=== PATIENT | female | born 1970 | race Hispanic/Latino ===

== ENCOUNTER 2024-07-29 09:49 | Inpatient (IN) | payer BC ==
[~2024-07-29] VITALS: Ht 162.6 cm; Wt 72.6 kg
--- NOTE | 2024-07-29 10:11 | ERN ---
General Chief Complaint: Abdominal Pain Stated Complaint: GENERALIZED ABDOMINAL PAIN Time Seen by MD: 09:51 Source: patient, family History of Present Illness Initial Comments PATIENT IS A 54-YEAR-OLD FEMALE COMING IN COMPLAINING OF RIGHT UPPER QUADRANT PAIN RADIATING TO THE BACK. SHE STATES THAT THIS STARTED LAST NIGHT AFTER EATING. SHE ALSO STATES HE WAS DIAGNOSED WITH CHOLELITHIASIS SO SO A YEAR AGO. SHE STATES THAT SINCE THEN HAS PAIN HAD IMPROVED. Allergies: Coded Allergies: No Known Drug Allergies (Unverified Allergy, Unknown, 07/29/24) Past Medical History Past Medical History: Gallstones Past Surgical History: None ROS Dictation CONSTITUTIONAL: NO CHILLS, NO FEVER, NO WEAKNESS, NO DIAPHORESIS, NO MALAISE. HEAD/FACE: NO SIGNS OF TRAUMA. EENT: NO EYE PAIN, NO BLURRED VISION, NO TEARING, NO DOUBLE VISION, NO EAR PAIN, NO EAR DISCHARGE, NO NOSE PAIN, NO NASAL CONGESTION, NO THROAT PAIN, NO THROAT SWELLING, NO MOUTH PAIN. RESPIRATORY: NO COUGH, NO ORTHOPNEA, NO SOB, NO STRIDOR, NO WHEEZING. CARDIOVASCULAR: NO CHEST PAIN, NO EDEMA, NO PALPITATIONS, NO SYNCOPE. GASTROINTESTINAL/ABDOMINAL: NO ABDOMINAL PAIN, NO CONSTIPATION, NO DIARRHEA, NO NAUSEA, NO VOMITING. GENITOURINARY: NO ABNORMAL DISCHARGE, NO DYSURIA, NO FREQUENT URINATION, NO HEMATURIA. NO COMPLAINTS OF PAIN IN THE GENITALS. MUSCULOSKELETAL: NO BACK PAIN, NO GOUT, NO JOINT PAIN, NO JOINT SWELLING, NO MUSCLE PAIN, NO MUSCLE STIFFNESS, NO NECK PAIN. INTEGUMENTARY: NO CHANGE IN COLOR, NO CHANGE IN HAIR/NAILS, NO DRYNESS, NO LESION, NO LUMPS, NO RASH. NEUROLOGICAL/PSYCH: NO ANXIETY, NOT DEPRESSED, NO EMOTIONAL PROBLEM, NO HEADACHE, NO NUMBNESS, NO PRE-EXISTING DEFICIT, NO HISTORY OF SEIZURES, NO TREMORS, NO WEAKNESS. HEMATOLOGIC/LYMPHATIC: NOT ANEMIC, NO HISTORY OF BLOOD CLOTS, NO APPARENT BLEEDING, NO BRUISING, GLANDS NOT SWOLLEN. ALL SYSTEMS NEGATIVE, EXCEPT NOTED. Physical Exam Physical Exam Dictation VITAL SIGNS: REVIEWED. GENERAL APPEARANCE: ALERT, ORIENTED X3, NO ACUTE DISTRESS, OBESE. HEAD AND FACE: NON-TRAUMATIC. EYES: PERRL, PINK CONJUNCTIVAS, EYELID NO TRAUMA, ANTERIOR CHAMBER CLEAR. EARS: PINNAS INTACT AND NO SIGNS OF TRAUMA OR ERYTHEMA. EAR CANALS CLEAR AND NO DISCHARGE. TMS NO ERYTHEMA. NOSE: NO DISCHARGE, NO BLEEDING. OROPHARYNX: MOUTH NORMAL, TEETH NO CARIES, TONGUE PINK. PHARYNX CLEAR, NO ERYTHEMA. TONSILS NO EXUDATES, NO ABSCESSES NOTED. MUCOUS MEMBRANE MOIST. NECK: SUPPLE, NON-TENDER, NO THYROMEGALY, NO MASSES, NO JVD, NO BRUITS. BREAST: DEFERRED. CHEST: NO TENDERNESS, NO CREPITUS, NO PARADOXICAL MOVEMENT, NO RETRACTIONS. LUNGS: CLEAR, WELL-VENTILATED, SYMMETRIC, NO RALES, NO WHEEZING, NO RHONCHI, NO STRIDOR, GOOD BREATH SOUNDS BILATERALLY. HEART: REGULAR RATE, REGULAR RHYTHM, NO MURMUR, NO GALLOPS. VASCULAR: NO PERIPHERAL EDEMA. ABDOMEN: SOFT, POSITIVE BOWEL SOUNDS, NONDISTENDED, NO GUARDING, NONTENDER, NO REBOUND, NO MASSES NO HEPATOMEGALY, NO SPLENOMEGALY, NO RAMESH'S SIGN, NO HERNIAS. RECTAL: DEFERRED. GENITAL: DEFERRED. NEUROLOGICAL: NORMAL SPEECH, GROSS MOTOR FUNCTION INTACT, GROSS SENSORY FUNCTION INTACT. MUSCULOSKELETAL: NECK NONTENDER, FULL RANGE OF MOTION, BACK NONTENDER, FULL RANGE OF MOTION. EXTREMITIES: NONTENDER, FULL RANGE OF MOTION. SKIN: COLOR PINK, DRY, NO TURGOR, NO RASH, NO LACERATIONS, NO ABRASIONS, NO CONTUSIONS. LYMPHATICS: DEFERRED. Results Laboratory and Microbiology Lab and Micro Result Laboratory Tests Test 07/29/24 10:09 07/29/24 11:42 White Blood Count 6.1 K/uL (4.8-10.8) Red Blood Count 4.60 MIL/uL (4.00-5.50) Hemoglobin 14.4 g/dL (12.0-16.0) Hematocrit 40.8 % (36-48) Mean Corpuscular Volume 88.7 fL (79-99) Mean Corpuscular Hemoglobin 31.3 pg (27.0-33.0) Mean Corpuscular Hemoglobin Concent 35.3 g/dL (32.0-36.0) Red Cell Distribution Width 12.0 % (11.0-15.5) Platelet Count 294 K/uL (130-400) Mean Platelet Volume 10.6 fL (7.5-10.5) H Immature Granulocyte % (Auto) 0.3 % (0-1) Neutrophils (%) (Auto) 59.1 % (40.0-77.0) Lymphocytes (%) (Auto) 31.1 % (21.0-51.0) Monocytes (%) (Auto) 6.0 % (3.0-13.0) Eosinophils (%) (Auto) 2.8 % (0.0-8.0) Basophils (%) (Auto) 0.7 % (0.0-5.0) Neutrophils # (Auto) 3.6 K/uL (1.8-7.7) Lymphocytes # (Auto) 1.9 K/uL (1.0-4.8) Monocytes # (Auto) 0.4 K/uL (0.1-1.0) Eosinophils # (Auto) 0.17 K/uL (0.00-0.70) Basophils # (Auto) 0.04 K/uL (0.00-0.20) Absolute Immature Granulocyte (auto 0.02 K/uL (0-1) Nucleated Red Blood Cells 0.0 % (0.0-0.19) Sodium Level 141 mmol/L (136-145) Potassium Level 3.5 mmol/L (3.5-5.1) Chloride Level 105 mmol/L (101-111) Carbon Dioxide Level 29 mmol/L (21-32) Blood Urea Nitrogen 10 mg/dL (7-18) Creatinine 0.8 mg/dL (0.5-1.0) Glomerular Filtration Rate Calc 86 mL/min (>90) Random Glucose 99 mg/dL (70-105) Total Calcium 9.0 mg/dL (8.5-10.1) Total Bilirubin 0.8 mg/dL (0.2-1.0) Aspartate Amino Transf (AST/SGOT) 31 U/L (10-37) Alanine Aminotransferase (ALT/SGPT) 48 U/L (12-78) Alkaline Phosphatase 82 U/L (50-136) Total Creatine Kinase 107 U/L (21-232) Troponin I High Sensitivity 40 ng/L (4-50) Total Protein 8.7 g/dL (6.0-8.3) H Albumin 4.3 g/dL (3.5-5.0) Lipase 23 U/L (16-77) Urine Color COLORLESS (YELLOW) Urine Appearance CLEAR (CLEAR) Urine pH 7.0 (5.0-8.0) Urine Specific [place] 1.003 (1.001-1.031) Urine Protein NEGATIVE mg/dL (NEGATIVE) Urine Glucose (UA) NEGATIVE mg/dL (NEGATIVE) Urine Ketones NEGATIVE mg/dL (NEGATIVE) Urine Occult Blood NEGATIVE (NEGATIVE) Urine Nitrate NEGATIVE (NEGATIVE) Urine Bilirubin NEGATIVE mg/dL (NEGATIVE) Urine Urobilinogen 0.2 mg/dL (0.2-1.0) Urine Leukocyte Esterase NEGATIVE Valerie/uL Labs Reviewed?: Yes EKG/XRAY/US/CT/MRI EKG Comment 11/2024 TIME 10:20 A.M. VENTRICULAR RATE 69 SINUS RHYTHM [place] [address] WAVE ELEVATION OR DEPRESSION X-RAY Comment [address] [place] [id number] IMAGING REPORT Signed PATIENT: MARY THOMAS MR#: [id number] : 1970 SEX: F AGE: 54 LOCATION: [facility] ORDER 6 STATUS: [facility] REPORT#: [id number] SERVICE 5 REASON: CP ORDERING PHYSICIAN: ERIC HERRERA MD PROCEDURE: CXR1VW - CHEST 1VW Exam Type: CHEST 1VW Clinical Information: CP Comparison: None Findings: The lungs are clear of infiltrates. The heart is normal in size. The bony and soft tissue structures of the chest are unremarkable. Impression: Clear lungs. DICTATED BY: OBED THOMPSON MD DATE: 07/29/24 1031 ELECTRONICALLY SIGNED BY: OBED THOMPSON MD DATE: 07/29/24 1035 Ultrasound Comment [facility] [address] [id number] IMAGING REPORT Signed PATIENT: MARY THOMAS MR#: [id number] : 1970 SEX: F AGE: 54 LOCATION: [facility] ORDER 6 STATUS: [facility] REPORT#: [id number] SERVICE 5 REASON: Adominal Pain ORDERING PHYSICIAN: ERIC HERRERA MD PROCEDURE: ABDRUQLTD - US ABDOMINAL RUQ\LTD Exam Type: US ABDOMINAL RUQ\E\LTD Clinical Information: Adominal Pain Comparison: None Findings: The liver shows fatty infiltration and is enlarged, measuring 16 and is otherwise unremarkable. Doppler evaluation shows patent portal and hepatic veins. The gallbladder shows cholelithiasis but no evidence of acute or chronic inflammation seen. The gallbladder wall measures 3 mm. The common bile duct is dilated, measuring 8 to 10 mm. The right kidney measures 11.9 x 3.8 cm- it shows no hydronephrosis or calculi, masses or other abnormalities. The pancreas is suboptimally visualized. IMPRESSION: FATTY LIVER INFILTRATION AND HEPATOMEGALY. CHOLELITHIASIS. Dilated common bile duct. DICTATED BY: OBED THOMPSON MD DATE: 07/29/241120 ELECTRONICALLY SIGNED BY: OBED THOMPSON MD DATE: 07/29/241124 CT Scan Comment [address] [id number] IMAGING REPORT Signed PATIENT: MARY THOMAS MR#: [id number] : 1970 SEX: F AGE: 54 LOCATION: [facility] ORDER 6 STATUS: [facility] REPORT#: [id number] SERVICE REASON: ABD PAIN ORDERING PHYSICIAN: ERIC HERRERA MD PROCEDURE: ABD PEL WO - CT ABDOMEN/PELVIS W/O CONTRAST Exam Type: CT ABDOMEN/PELVIS W/O CONTRAST Clinical Information: ABD PAIN Comparison: None CT Dose Index (CTDI): 10.20 mGy Dose Length Product (DLP): 530.00 total mGy-cm PROTOCOL: Routine noncontrast helical scanning of the abdomen and pelvis was performed at 5mm collimation. Findings: No evidence of nephro or ureterolithiasis is found. No hydronephrosis or ureteral dilatation is seen. The lung bases are clear. The stomach is unremarkable. It shows no wall thickening. No gross ulceration is seen. It is not overly distended. There are no surrounding inflammatory changes. No wall lesions are identified to suggest cancer. The spleen is unremarkable. It is not enlarged. The pancreas shows normal anatomy. It is not fatty replaced. It shows no lesions. The pancreatic duct is not dilated. There is evidence of cholelithiasis. No evidence of acute or chronic inflammation is seen. The adrenal glands are unremarkable. There is no enlargement. No lesions are noted. The liver is unremarkable. It shows no focal masses. The appendix is unremarkable. It shows no evidence of inflammation. No appendicolith is seen. The small bowel is unremarkable. There is no evidence of dilatation to suggest obstruction. No evidence of adynamic ileus is seen. There is no small bowel wall thickening to suggest enteritis. The colon is unremarkable. The urinary bladder is unremarkable. There is no wall thickening to suggest tumor or inflammation. There are no intraluminal calculi. There are no diverticula. There is no evidence of chronic bladder outlet obstruction. There is no evidence of urinary bladder distention to suggest urinary retention. The other pelvic structures are unremarkable. The bony and vascular structures are unremarkable for the patient's age. IMPRESSION: Cholelithiasis. This study was performed using dose reduction techniques to include automated exposure control and/or adjustment of the mA and/or kV according to patient size. DICTATED BY: OBED THOMPSON MD DATE: 07/29/24 1036 ELECTRONICALLY SIGNED BY: OBED THOMPSON MD DATE: 07/29/24 1041 [facility] MDM: DIFFERENTIAL DIAGNOSIS: CHOLELITHIASIS, CHOLECYSTITIS, CHOLANGITIS, RATIONALE: TESTS CONSIDERED AND ORDERED SECONDARY TO SHARED DECISION MAKING INCLUDE: PREVIOUS OUTSIDE RECORDS REVIEWED: OLD ER VISITS. RISK OF COMPLICATION AND/OR MORBIDITY OR MORTALITY OF PATIENT MANAGEMENT: NONE MEDICATIONS-PER MEDICATION RECONCILIATION NEED FOR HOSPITALIZATION: PATIENT DOES MEET CRITERIA FOR HOSPITALIZATION. NEED FOR EMERGENCY MAJOR/MINOR SURGERY: NO THERE ARE NO SOCIAL CONCERNS WITH THIS PATIENT. PRESCRIPTION DRUG MANAGEMENT PRESCRIPTIONS WILL INCLUDE SYMPTOMATIC CARE PATIENT'S PRIOR EXTERNAL MEDICAL RECORDS FROM OTHER ER VISITS WERE REVIEWED BY ME INDICATED. PRIOR TESTING AND RESULTS FROM PREVIOUS VISITS WERE REVIEWED. PRIOR TESTS WERE TAKEN INTO ACCOUNT WITH MEDICAL DECISION MAKING AND RESOURCE U TILIZATION, INDEPENDENT HISTORIAN/HISTORIANS WERE USED TO OBTAIN COMPLETE MEDICAL HISTORY. I INDEPENDENTLY INTERPRETED THE TEST THAT WERE PERFORMED, RESULTS WERE REVIEWED BY ME AND CONSIDERED FINDINGS ON RADIOLOGY IF ORDERED. MEDICAL MANAGEMENT AND EXAMINATION INTERPRETATION DISCUSSIONS WERE HAD BY ME WITH OTHER QUALIFIED HEALTHCARE PROFESSIONALS INDICATED FOR THE PATIENT'S CA RE. IS A 54-YEAR-OLD FEMALE COMING IN WITH RIGHT UPPER QUADRANT PAIN. ULTRASOUND CONFIRMS LARGE GALLSTONE 2 CM AT THE NECK OF THE GALLBLADDER NON MOBILE, LONG WITH THIS THERE IS SLUDGE MATERIAL FOUND VIA ULTRASOUND IN THE GALLBLADDER. WITH THESE FINDINGS MOST CONSISTENT DIAGNOSED WOULD BE CHOLELITHIASIS, CHOLECYSTITIS. CASE DISCUSSED WITH SURGEON DR. BONILLA WAS ON-[facility] ACCEPTS PATIENT. ED Course Orders Procedure Category Date Status Time Cbc With Differential LAB 07/29/24 Complete 09:56 Comprehensive LAB 07/29/24 Complete Metabolic Panel 09:56 Troponin I High LAB 07/29/24 Complete Sensitivity 09:56 Urinalysis Profile LAB 07/29/24 Complete 09:56 Us Abdominal Ruq\Ltd US 07/29/24 Resulted 09:56 12 Lead Ekg Tracing- EKG 07/29/24 Logged Technical 09:56 Lactated Ringers PHA 07/29/24 Complete 1000ml (Lactated 10:00 Ondansetron 4mg Inj PHA 07/29/24 Complete (Zofran 4mg Inj) 10:00 Pantoprazole 40mg Inj PHA 07/29/24 Complete (Protonix 40mg Inj 10:00 Creatine Kinase, Total LAB 07/29/24 Complete 09:56 Ct Abdomen/Pelvis W/O CT 07/29/24 Resulted Contrast 09:56 Chest 1vw RAD 07/29/24 Resulted 09:56 Lipase LAB 07/29/24 Complete 09:56 Current Medications Medications (Trade) Dose Ordered Sig/Yogi Route PRN Reason Start Time Stop Time Status Last Admin Dose Admin Lactated Ringer's 1,000 ml @ 0 mls/hr ONCE ONCE IV 07/29/24 10:00 07/29/24 10:01 DC 07/29/24 10:19 Ondansetron HCl (zoFRAN 4MG INJ) 4 mg ONCE ONCE IVP 07/29/24 10:00 07/29/24 10:01 DC 07/29/24 10:18 Pantoprazole Sodium (PROTonix 40MG INJ) 40 mg ONCE ONCE IVP 07/29/24 10:00 07/29/24 10:01 DC 07/29/24 10:18 Vital Signs Date Time Temp Pulse Resp B/P (MAP) Pulse Ox O2 Delivery O2 Flow Rate FiO2 07/29/24 11:20 97.9 62 18 157/89 100 Room Air* 0 21 07/29/24 10:11 98.2 71 17 152/96 95 Room Air* 0 21 07/29/24 09:51 98.6 79 16 125/98 96 Room Air 0 DX & DISP Disposition: Inpatient Decision to Admit Time: 12:37 Departure Impression: Primary Impression: Cholecystitis Condition: Stable ERIC HERRERA MD July 29, 2024 10:11
[2024-07-29] MEDS: ondanSETRON 4MG INJ IVP ONE (10:18)
[2024-07-29] MEDS: PANTOPrazole 40 MG/VIAL IVP ONE (10:18)
[2024-07-29] MEDS: LACTATED RINGERS 1000ML 1,000 ML IV ONE (10:19)
[2024-07-29 10:32] LABS: BASOPHILS # (AUTO) 0.04 K/uL (0.00-0.20); BASOPHILS % (AUTO) 0.7 % (0.0-5.0); EOSINOPHILS # (AUTO) 0.17 K/uL (0.00-0.70); EOSINOPHILS % (AUTO) 2.8 % (0.0-8.0); HEMATOCRIT 40.8 % (36-48); IMMATURE GRANULOCYTE ABSOLUTE 0.02 K/uL (0-1); LYMPHOCYTES # (AUTO) 1.9 K/uL (1.0-4.8); LYMPHOCYTES % (AUTO) 31.1 % (21.0-51.0); MEAN CORPUSCULAR HEMOGLOBIN 31.3 pg (27.0-33.0); MEAN CORPUSCULAR HGB CONC 35.3 g/dL (32.0-36.0); MEAN CORPUSCULAR VOLUME 88.7 fL (79-99); MONOCYTES # (AUTO) 0.4 K/uL (0.1-1.0); NEUTROPHILS # (AUTO) 3.6 K/uL (1.8-7.7); NEUTROPHILS % (AUTO) 59.1 % (40.0-77.0); PLATELET COUNT (AUTO) 294 K/uL (130-400); WHITE BLOOD COUNT (AUTO) 6.1 K/uL (4.8-10.8)
--- NOTE | 2024-07-29 10:35 | HMCIMG ---
Exam Type: CHEST 1VW Clinical Information: CP Comparison: None Findings: The lungs are clear of infiltrates. The heart is normal in size. The bony and soft tissue structures of the chest are unremarkable. Impression: Clear lungs.
[2024-07-29 10:38] LABS: CREATININE 0.8 mg/dL (0.5-1.0); POTASSIUM 3.5 mmol/L (3.5-5.1)
--- NOTE | 2024-07-29 10:41 | HMCIMG ---
Exam Type: CT ABDOMEN/PELVIS W/O CONTRAST Clinical Information: ABD PAIN Comparison: None CT Dose Index (CTDI): 10.20 mGy Dose Length Product (DLP): 530.00 total mGy-cm PROTOCOL: Routine noncontrast helical scanning of the abdomen and pelvis was performed at 5mm collimation. Findings: No evidence of nephro or ureterolithiasis is found. No hydronephrosis or ureteral dilatation is seen. The lung bases are clear. The stomach is unremarkable. It shows no wall thickening. No gross ulceration is seen. It is not overly distended. There are no surrounding inflammatory changes. No wall lesions are identified to suggest cancer. The spleen is unremarkable. It is not enlarged. The pancreas shows normal anatomy. It is not fatty replaced. It shows no lesions. The pancreatic duct is not dilated. There is evidence of cholelithiasis. No evidence of acute or chronic inflammation is seen. The adrenal glands are unremarkable. There is no enlargement. No lesions are noted. The liver is unremarkable. It shows no focal masses. The appendix is unremarkable. It shows no evidence of inflammation. No appendicolith is seen. The small bowel is unremarkable. There is no evidence of dilatation to suggest obstruction. No evidence of adynamic ileus is seen. There is no small bowel wall thickening to suggest enteritis. The colon is unremarkable. The urinary bladder is unremarkable. There is no wall thickening to suggest tumor or inflammation. There are no intraluminal calculi. There are no diverticula. There is no evidence of chronic bladder outlet obstruction. There is no evidence of urinary bladder distention to suggest urinary retention. The other pelvic structures are unremarkable. The bony and vascular structures are unremarkable for the patient's age. IMPRESSION: Cholelithiasis. This study was performed using dose reduction techniques to include automated exposure control and/or adjustment of the mA and/or kV according to patient size.
[2024-07-29 10:43] LABS: ALBUMIN 4.3 g/dL (3.5-5.0); BILIRUBIN,TOTAL 0.8 mg/dL (0.2-1.0); TOTAL PROTEIN, SERUM 8.7 g/dL (6.0-8.3)
--- NOTE | 2024-07-29 11:25 | HMCIMG ---
Exam Type: US ABDOMINAL RUQ\E\LTD Clinical Information: Adominal Pain Comparison: None Findings: The liver shows fatty infiltration and is enlarged, measuring 16 and is otherwise unremarkable. Doppler evaluation shows patent portal and hepatic veins. The gallbladder shows cholelithiasis but no evidence of acute or chronic inflammation seen. The gallbladder wall measures 3 mm. The common bile duct is dilated, measuring 8 to 10 mm. The right kidney measures 11.9 x 3.8 cm- it shows no hydronephrosis or calculi, masses or other abnormalities. The pancreas is suboptimally visualized. IMPRESSION: FATTY LIVER INFILTRATION AND HEPATOMEGALY. CHOLELITHIASIS. Dilated common bile duct.
[2024-07-29 11:51] LABS: APPEARANCE,URINE CLEAR (CLEAR); BILIRUBIN,URINE NEGATIVE (NEGATIVE); COLOR,URINE COLORLESS (YELLOW); GLUCOSE, URINE (UA) NEGATIVE (NEGATIVE); KETONES,URINE NEGATIVE (NEGATIVE); LEUKOCYTE ESTERASE ,URINE NEGATIVE Leu/uL (NEGATIVE); NITRATE,URINE NEGATIVE (NEGATIVE); OCCULT BLOOD,URINE NEGATIVE (NEGATIVE); PROTEIN,URINE NEGATIVE (NEGATIVE); UROBILINOGEN,URINE 0.2 mg/dL (0.2-1.0)
[2024-07-29 11:52] LABS: ADD UA MICROSCOPIC NO
[2024-07-29] MEDS ORDERED: acetaMINOPHEN 325 MG TAB PO PRN (13:00)
[2024-07-29] MEDS ORDERED: LAbetaLOL 20MG SYG IV PRN (13:30)
[2024-07-29] MEDS ORDERED: PoTASSium chloRIDE 20MEQ ER 20 MEQ ERTAB PO PRN (13:30)
[2024-07-29] MEDS ORDERED: PoTASSium chloRIDE 20MEQ/100ML 100 ML IV PRN (13:30)
[2024-07-29] MEDS ORDERED: PoTASSium chl 10% ELIXIR 20MEQ 20 MEQ/15 ML UDCUP PO PRN (13:30)
[2024-07-29] MEDS ORDERED: ondanSETRON 4MG INJ IVP PRN (13:30)
[2024-07-29] MEDS ORDERED: AMLO-257 PO (14:29)
[2024-07-29] MEDS: cefTRIAXone 1G VIAL IVPB SCH (14:31)
[2024-07-29] MEDS: LACTATED RINGERS 1000ML 1,000 ML IV SCH (14:31)
--- NOTE | 2024-07-29 14:37 | NUR ---
PATIENTS STATED HE GAVE PATIENT HER AMLODIPINE 5MG PO I EXPLAINED TO PATIENT AND TO HOLD OF ON HOME MEDS UNTIL DR REVIEWS THEM
--- NOTE | 2024-07-29 14:39 | NUR ---
DCP: HOME Pt currently lives with her Debora Alberto [phone] in their own home. Pt denied any insecurities with food, senior living, and/or utilities. Pt does not have DME, home health, or provider services. Pt is able to complete ADLs independently. Pt reports that she has a PCP that has been appointed by her insurance however she hasn't made appointment yet or recall the name of the doctor. Pt uses [facility] on [address] for any RX needs. At [place] pt will go home and family will assist with transportation. Addendum: 07/29/24 at 1443 by VENUS MEDINA SS Amended: Links added.
[2024-07-29] MEDS: metRONIDazole 500MG/100ML BAG 100 ML IVPB SCH (14:43)
--- NOTE | 2024-07-29 15:18 | EKG ---
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
--- NOTE | 2024-07-29 15:18 | EKG ---
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
[2024-07-29 15:50] VITALS: BP 158/97; PULSE 78; RESP 18; TEMP 98.2
--- NOTE | 2024-07-29 16:00 | NUR ---
CALLED AND GAVE BEDSIDE REPORT KORIN RN, ROOM 314 BED WAS CLEAN AND READY TO USE
--- NOTE | 2024-07-29 16:05 | HP ---
[facility] HISTORY [facility] PHYSICAL Date of Service: July 29, 2024 Time of Service: 16:00 HISTORY OF PRESENT ILLNESS: Date of service: 07/29/2024 54-year-old female with underlying history of hypertension, cholelithiasis who presented to the ER for further evaluation of right upper quadrant abdominal pain that started since 12:00 p.m. yesterday with associated nausea and multiple episodes of vomiting x 2. Patient states that symptoms started yesterday afternoon and pain has been very severe in intensity this morning. Pain was 9- 10/10 in severity. Patient states that she had similar symptoms last year and was told that she had cholelithiasis. Has not been evaluated by surgery as outpatient. She denies any fevers, chills, chest pain or shortness of breath. She reports that patient has a history of hypertension. She takes amlodipine for management of blood pressure control. She sometimes forgets to take amlod ipine. She denies any previous history of AL or syncope. On presentation to the hospital, patient was noted to be afebrile and hemodynamically stable. Labs on presentation was unremarkable. Patient underwent CT abdomen pelvis which showed findings of multiple cholelithiasis. Abdominal ultrasound showed findings of cholelithiasis, fatty liver, with dilated common bile duct. Chest x-ray showed no acute infiltrates. Consultation with General surgery with Dr. Dahl was requested in the ER. Patient will be admitted and will receive IV fluids and IV antibiotic therapy. We will obtain MRCP to rule out choledocholithiasis, we will follow up General surgery recommendations to see if patient will benefit from inpatient cholecystectomy given due to symptomatic cholelithiasis. REVIEW OF SYSTEMS CONSTITUTIONAL: Denies fevers, chills, or night sweats. No unintentional weight loss reported. NEUROLOGICAL: Denies headache, amaurosis fugax, motor weakness, sensory deficit, vertigo/spinning sensation, gait abnormalities, or tremors. ENT: No hearing loss, otalgia, otorrhea, rhinitis, rhinorrhea, hoarseness, or sore throat. CARDIOVASCULAR: Denies any exertional angina, dyspnea on exertion, orthopnea, paroxysmal nocturnal dyspnea, palpitations, life-threatening arrhythmias, cl audication. PULMONARY: Denies any shortness of breath, cough, phlegm/sputum, hemoptysis, pleuritic chest pain. SLEEP: Denies morning headaches, daytime somnolence or napping. Denies difficulty falling asleep, staying asleep, waking from sleep. Denies knowledge of snoring. GASTROINTESTINAL: Nausea, vomiting, abdominal pain GENITOURINARY: Denies frequency, urgency, nocturia, hematuria or incontinence (Storage/Irritative symptoms.) Low urinary stream, straining to void, urinary intermittency or hesitancy, splitting of the voiding stream, terminal dribbling. ENDOCRINOLOGIC: Denies polyuria, polydipsia, polyphagia or heat/cold intolerances. HEMATOLOGIC: Denies thrombophilia/previous clots, or coagulopathy/bleeding disorders. ONCOLOGIC: Denies personal history of malignancy. DERMATOLOGIC: Denies rashes or pruritus. PSYCHIATRIC: Denies any suicidal or homicidal ideation. Denies hallucinations. PAST MEDICAL HISTORY: Hypertension, cholelithiasis PAST SURGICAL HISTORY: Denies any history of significant surgeries PAST SOCIAL HISTORY: Denies active smoking or alcohol consumption FAMILY HISTORY: Denies pertinent family history Allergies: No known drug allergies Home medications: Amlodipine 5 mg daily Coded Allergies: No Known Drug Allergies (Unverified Allergy, Unknown, 07/29/24) PHYSICAL EXAM GENERAL APPEARANCE: The patient is awake, alert, and oriented, in no acute cardiopulmonary distress. NEUROLOGICAL: Cranial nerves II-XII grossly intact. Motor is 5/5 in bilateral upper and lower extremities proximal to distal. No sensory deficits. HEENT: Face is symmetric. Pupils are equal and reactive. Extraocular movements are intact. NECK: Supple. No JVD. No thyromegaly. No submental, submandibular, pre- /postauricular, occipital or supraclavicular lymphadenopathy. CHEST: Normal chest expansion. No Telemetry. LUNGS: Absence of any rales, rhonchi or any wheezing. CARDIOVASCULAR: Regular. S1 and S2 normal. No appreciable rubs, murmurs or gallops. ABDOMEN: Soft, mild tenderness to palpation of the right upper quadrant with Womack's sign noted to be negative : Deferred. No Rosas. EXTREMITIES: Non-edematous and not cyanotic. No clubbing. Good capillary refi ll. SKIN: No skin breakdown. Vital Sign (Last 24 Hours) 07/29/24 15:58 Temp 98.1 Pulse 65 Resp 17 B/P (MAP) 153/97 Pulse Ox 97 O2 Delivery Room Air* O2 Flow Rate 0 FiO2 21 LABS: Laboratory: Test 07/29/24 11:42 07/29/24 10:09 07/29/24 10:04 Range/Units Urine Color COLORLESS YELLOW Urine Appearance CLEAR CLEAR Urine pH 7.0 5.0-8.0 Urine Specific [place] 1.003 1.001-1.031 Urine Protein NEGATIVE NEGATIVE mg/dL Urine Glucose (UA) NEGATIVE NEGATIVE mg/dL Urine Ketones NEGATIVE NEGATIVE mg/dL Urine Occult Blood NEGATIVE NEGATIVE Urine Nitrate NEGATIVE NEGATIVE Urine Bilirubin NEGATIVE NEGATIVE mg/dL Urine Urobilinogen 0.2 0.2-1.0 mg/dL Urine Leukocyte Esterase NEGATIVE NEGATIVE Valerie/uL White Blood Count 6.1 4.8-10.8 K/uL Red Blood Count 4.60 4.00-5.50 MIL/uL Hemoglobin 14.4 12.0-16.0 g/dL Hematocrit 40.8 36-48 % Mean Corpuscular Volume 88.7 79-99 fL Mean Corpuscular Hemoglobin 31.3 27.0-33.0 pg Mean Corpuscular Hemoglobin Concent 35.3 32.0-36.0 g/dL Red Cell Distribution Width 12.0 11.0-15.5 % Platelet Count 294 130-400 K/uL Mean Platelet Volume 10.6 H 7.5-10.5 fL Immature Granulocyte % (Auto) 0.3 0-1 % Neutrophils (%) (Auto) 59.1 40.0-77.0 % Lymphocytes (%) (Auto) 31.1 21.0-51.0 % Monocytes (%) (Auto) 6.0 3.0-13.0 % Eosinophils (%) (Auto) 2.8 0.0-8.0 % Basophils (%) (Auto) 0.7 0.0-5.0 % Neutrophils # (Auto) 3.6 1.8-7.7 K/uL Lymphocytes # (Auto) 1.9 1.0-4.8 K/uL Monocytes # (Auto) 0.4 0.1-1.0 K/uL Eosinophils # (Auto) 0.17 0.00-0.70 K/uL Basophils # (Auto) 0.04 0.00-0.20 K/uL Absolute Immature Granulocyte (auto 0.02 0-1 K/uL Nucleated Red Blood Cells 0.0 0.0-0.19 % Erythrocyte Sedimentation Rate 26 0-30 MM/HR Sodium Level 141 136-145 mmol/L Potassium Level 3.5 3.5-5.1 mmol/L Chloride Level 105 101-111 mmol/L Carbon Dioxide Level 29 21-32 mmol/L Blood Urea Nitrogen 10 7-18 mg/dL Creatinine 0.8 0.5-1.0 mg/dL Glomerular Filtration Rate Calc 86 >90 mL/min Random Glucose 99 70-105 mg/dL Total Calcium 9.0 8.5-10.1 mg/dL Total Bilirubin 0.8 0.2-1.0 mg/dL Aspartate Amino Transf (AST/SGOT) 31 10-37 U/L Alanine Aminotransferase (ALT/SGPT) 48 12-78 U/L Alkaline Phosphatase 82 50-136 U/L Total Creatine Kinase 107 21-232 U/L Troponin I High Sensitivity 40 4-50 ng/L Total Protein 8.7 H 6.0-8.3 g/dL Albumin 4.3 3.5-5.0 g/dL Lipase 23 16-77 U/L C-Reactive Protein, Quantitative 3.40 H 0.5-3.0 mg/L Procalcitonin < 0.05 L 0.05-0.5 ng/mL Current Medications Medications (Trade) Dose Ordered Sig/Yogi Route PRN Reason Start Time Stop Time Status Last Admin Dose Admin Acetaminophen (TYLenol 325MG TAB) 650 mg Q6H PRN PO MILD PAIN (1-3) 07/29/24 13:00 08/28/24 12:59 Amlodipine Besylate (NorvASC 5MG TAB) 5 mg DAILY PO 07/30/24 09:00 08/29/24 08:59 Ceftriaxone Sodium (ROCEphine 1G INJ) 1 gm Q24H IVPB 07/29/24 13:30 08/08/24 13:29 07/29/24 14:31 1 GM Ketorolac Tromethamine (toRADol) 15 mg Q12H PRN IV MODERATE PAIN (4-6) 07/29/24 13:30 07/31/24 13:30 Labetalol HCl (TRANdate 20MG SYG) 10 mg Q6H PRN IV SBP> 170 07/29/24 13:30 08/28/24 13:29 Lactated Ringer's 1,000 ml @ 80 mls/hr [id number] IV 07/29/24 13:00 08/28/24 12:59 07/29/24 14:31 80 MLS/HR Metronidazole/ Sodium Chloride 100 ml @ 100 mls/hr Q8H6 IVPB 07/29/24 14:00 08/08/24 13:59 07/29/24 14:43 100 MLS/HR Morphine Sulfate (morPHINE 2MG SYG) 2 mg Q6H PRN IVP SEVERE PAIN (7-10) 07/29/24 13:30 08/05/24 13:29 Ondansetron HCl (zoFRAN 4MG INJ) 4 mg Q6H PRN IVP NAUSEA/VOMITING 07/29/24 13:30 08/28/24 13:29 Pantoprazole Sodium (PROTonix 40MG INJ) 40 mg DAILY IVP 07/30/24 09:00 08/29/24 08:59 Potassium Chloride 100 ml @ 100 mls/hr AD PRN IV POTASSIUM PROTOCOL 07/29/24 13:30 08/28/24 13:29 Potassium Chloride (K-Dur/Klor-Con 20meq) 20 meq AD PRN PO POTASSIUM PROTOCOL 07/29/24 13:30 08/28/24 13:29 Potassium Chloride (KCl 10% Elixir 20meq/15ml) 20 meq AD PRN PO POTASSIUM PROTOCOL 07/29/24 13:30 08/28/24 13:29 DIAGNOSTICS / RADIOLOGY: SERVICE [id number] REASON: Adominal Pain ORDERING PHYSICIAN: ERIC HERRERA MD PROCEDURE: [id number] - US ABDOMINAL RUQ\LTD Exam Type: US ABDOMINAL RUQ\E\LTD Clinical Information: Adominal Pain Comparison: None Findings: The liver shows fatty infiltration and is enlarged, measuring 16 and is otherwise unremarkable. Doppler evaluation shows patent portal and hepatic veins. The gallbladder shows cholelithiasis but no evidence of acute or chronic inflammation seen. The gallbladder wall measures 3 mm. The common bile duct is dilated, measuring 8 to 10 mm. The right kidney measures 11.9 x 3.8 cm- it shows no hydronephrosis or calculi, masses or other abnormalities. The pancreas is suboptimally visualized. IMPRESSION: FATTY LIVER INFILTRATION AND HEPATOMEGALY. CHOLELITHIASIS. Dilated common bile duct. DICTATED BY: OBED THOMPSON MD DATE: 07/29/24 9910 ELECTRONICALLY SIGNED BY: OBED THOMPSON MD DATE: 07/29/24 112 ASSESSMENT: Symptomatic biliary colic with cholelithiasis, POA Dilated common bile duct, POA Rule out choledocholithiasis, POA Prior history of cholelithiasis, POA History of hypertension, POA PLAN: Patient will be admitted to medical-surgical floor We will keep patient NPO except for medications We will start patient on lactated Ringer's at 80 mL/hour Broad-spectrum antibiotics with IV Rocephin/Flagyl We will follow up results of the MRCP to rule out choledocholithiasis, will need GI consultation if choledocholithiases is confirmed Consultation was already requested in the ER for general surgical evaluation, we will see if patient needs inpatient cholecystectomy this admission Patient to continue with home dose of amlodipine 5 mg daily All labs will be repeated in the morning DVT prophylaxis with SCDs GI prophylaxis with Protonix Date of service: 07/29/2024 Plan of care was discussed with patient and at bedside, Mitul Galindo MD Advanced Care Planning: Which of the following were discussed: Hospice care: Yes __ No _X_ Therapeutic options: Yes _X_ No __ Advance directives: Yes _X_ No __ Other discussions: Discussed with who?: Patient Voluntary nature of this service was explained to the patient? Yes _x_ No __ Amount of time spent: 20 minutes MITUL GALINDO MD July 29, 2024 16:05
--- NOTE | 2024-07-29 16:15 | CONS ---
CONSULT NOTE: Consulting physician: ER Consulting service: General surgery Reason for consultation: Cholelithiasis History of present illness: This is a 54-year-old female with a known history of cholelithiasis that has been consulted to surgery after presenting to the hospital with a episodes of abdominal discomfort associated with nausea and vomiting. Patient reports that pain began yesterday. Patient reports that patient's has greater than one month history of known cholelithiasis after seeing Dr. Oviedo. Concerns patient presented to the hospital for further evaluation. On initial presentation labs and vitals unremarkable. Patient's initial discomfort has improved. Ultrasound however concerning for dilated common bile duct. Patient currently NPO on IV fluids Medical history: Known cholelithiasis Surgical history: Review of systems: General: No Fever, No Chills, No Night Sweats, No Fatigue, No Malaise, No Appetite, No Other HEENT: No Head Aches, No Visual Changes, No Eye Pain, No Ear Pain, No Dysphasia, No Sinus Congestion, No Post Nasal Drip, No Sore Throat, No Other Pulmonary: No Dyspnea, No Cough, No Pleuritic Chest Pain, No Other Cardiovascular: No: Chest Pain, Palpitations, Orthopnea, Paroxysmal No Dyspnea, Edema, Lt Headedness, Other Gastrointestinal: No: Nausea, Vomiting, Diarrhea, Constipation, Melena, Hematochezia, Other Genitourinary: No Dysuria, No Frequency, No Incontinence, No Hematuria, No Retention, No Other Musculoskeletal: No: other, neck pain, shoulder pain, arm pain, back pain, hand pain, leg pain, foot pain Skin: No Urticaria, No Rash, No Other Neurological: No: Weakness, Numbness, Incoordination, Change in speech, Confusion, Seizures, Other Physical exam: General: Awake alert and oriented Heart: Regular rate and rhythm} Lungs: Clear to auscultation no distress Abdomen: [Soft, nontender, nondistended Assessment: This is a 54-year-old female with concerns of cholelithiasis and possible biliary dilatation Plan: At this point in time we will order MRCP to rule out for any concerns of choledocholithiasis with the ultrasound findings of common bile duct dilatation Patient to remain NPO We will also order HIDA scan to better evaluate abdomen Surgical team to follow patient closely Unclear if surgical intervention will be necessary at this time Dr. Lind to be updated in patient's status and surgical team to follow patient closely LINDSAY BOATENG Jr. July 29, 2024 16:15
[2024-07-29 16:40] VITALS: O2SAT 96
[2024-07-29 19:40] VITALS: O2SAT 95
[2024-07-29 20:00] VITALS: BP 157/103; PULSE 80; RESP 20; TEMP 97.8
[2024-07-29 20:30] VITALS: BP 143/80; PULSE 68
[2024-07-29 23:49] VITALS: BP 142/79; PULSE 70; RESP 20; TEMP 97.9
[2024-07-30] VITALS (30 sets, daily range): BP systolic 124–152; BP diastolic 66–98; PULSE 76–103; RESP 14–20; TEMP 97.4–98.3; O2SAT 92–97
[2024-07-30] MEDS: amLODIPine 5 MG TAB PO SCH (07:26)
[2024-07-30] MEDS: PANTOPrazole 40 MG/VIAL ONE (07:32)
[2024-07-30] MEDS: PANTOPrazole 40 MG/VIAL IVP SCH (07:34)
[2024-07-30] MEDS: ketOROlac 15MG/ML VIAL (15MG/ML) IV PRN (07:34)
--- NOTE | 2024-07-30 07:36 | NUR ---
spouse at bedside upset because patient has not eaten in 2 days, explained she is npo for scans and she is unable to drink/eat. spouse requesting to change md to dr so. did inform him i will let the attending physician know re: this. per spouse wants surgery done today.
--- NOTE | 2024-07-30 08:16 | NUR ---
TAKEN OFF UNIT FOR MRCP
--- NOTE | 2024-07-30 09:14 | NUR ---
[facility]
--- NOTE | 2024-07-30 09:21 | HMCIMG ---
Exam Type: MRI OF THE ABDOMEN WITHOUT CONTRAST and MR cholangiopancreatography Comparison Study: none History: ABD PAIN PROTOCOL: Examination is done with multiecho multiplanar sequences. ASSET with multiplanar 3-D reconstructions MR cholangiopancreatography sequences are also available for review. MRCP performed customary fashion. 2D axial FIESTA fat-saturated images of abdomen, coronal thick slab MRCP ASSET scan and coronal thin slab MRCP ASSET 3 mm images and maximum intensity projection postprocessing, MIP projected in the customary circumferential and head over heels fashion. FINDINGS: No evidence of nephro or ureterolithiasis is found. No hydronephrosis or ureteral dilatation is seen. The stomach is unremarkable. There is no evidence of gastric dilatation. No blastic thickening is noted to suggest inflammation or tumor. There is no perforation. There is no gastric outlet obstruction. There is no ulceration. The spleen is unremarkable. It is not enlarged. The pancreas shows normal anatomy. It is not fatty replaced. It shows no lesions. The pancreatic duct is not dilated. There is cholelithiasis with thickened gallbladder wall and pericholecystic fluid consistent with acute cholecystitis. There is a distal common bile duct calculus measuring approximately 6 mm, causing obstruction, with dilatation of the common bile duct which measures about 11 mm. The adrenal glands are unremarkable. There is no enlargement. No lesions are noted. The liver is unremarkable. It shows no focal masses. The visualized segments of large and small bowel appear unremarkable. The bony and vascular structures are unremarkable for the patient's age. IMPRESSION: There is cholelithiasis with thickened gallbladder wall and pericholecystic fluid consistent with acute cholecystitis. There is a distal common bile duct calculus measuring approximately 6 mm, causing obstruction, with dilatation of the common bile duct which measures about 11 mm.
--- NOTE | 2024-07-30 09:43 | NUR ---
SPOKE TO DR BERNAL. PT/SPOUSE REQUESTING TO SWITCH SURGEON TO DR DOMINGUEZ; ALSO REQUESTING TO EAT/DRINK AND WANTS SURGERY TODAY. MD PLACED CONSULT FOR GI WITH DR PRYOR FOR ERCP. DID INFORM SPOUSE OF CONSULT AND TO CONTINUE NPO
[2024-07-30 10:16] LABS: HEMATOCRIT 37.6 % (36-48); MEAN CORPUSCULAR HEMOGLOBIN 31.2 pg (27.0-33.0); MEAN CORPUSCULAR HGB CONC 35.4 g/dL (32.0-36.0); MEAN CORPUSCULAR VOLUME 88.3 fL (79-99); RED BLOOD CELL COUNT(AUTO) 4.26 MIL/uL (4.00-5.50); RED CELL DISTRIBUTION WIDTH 11.9 % (11.0-15.5)
[2024-07-30 10:27] LABS: AMYLASE 37 U/L (25-115)
[2024-07-30 10:31] LABS: BILIRUBIN,TOTAL 0.8 mg/dL (0.2-1.0); CREATININE 0.6 mg/dL (0.5-1.0); POTASSIUM 3.8 mmol/L (3.5-5.1)
--- NOTE | 2024-07-30 11:13 | PN ---
[facility] PROGRESS NOTE Date of Service: July 30, 2024 Time of Service: 11:10 SUBJECTIVE: 54-year-old female with underlying history of hypertension, cholelithiasis who presented to the ER for further evaluation of right upper quadrant abdominal pain that started since 12:00 p.m. yesterday with associated nausea and multiple episodes of vomiting x 2. Pain was 9-10/10 in severity. Patient stated that she had similar symptoms last year and was told that she had cholelithiasis. Has not been evaluated by surgery as outpatient. She denied any fevers, chills, chest pain or shortness of breath. She reportd that patient has a history of hypertension. She takes amlodipine for management of blood pressure control. She sometimes forgets to take amlodipine. She denied any previous history of NE or syncope. On presentation to the hospital, patient was noted to be afebrile and hemo dynamically stable. Labs on presentation was unremarkable. Patient underwent CT abdomen pelvis which showed findings of multiple cholelithiasis. Abdominal ultrasound showed findings of cholelithiasis, fatty liver, with dilated common bile duct. Chest x-ray showed no acute infiltrates. Consultation with General surgery with Dr. Dahl was requested in the ER. An MRCP was done, cholelithiasis with thickened gallbladder wall and pericholecystic fluid consistent with a acute cholecystitis, there is a distal common bile duct calculus measuring approximately 6 mm, causing obstruction, with a dilatation of the common bile duct which measures about 11 mm. 07/30 patient is seen and examined at bedside, NPO, getting IV fluids, alert oriented x3, good pain control with current management, at bedside. REVIEW OF SYSTEMS CONSTITUTIONAL: Denies fevers, chills, or night sweats. No unintentional weight loss reported. NEUROLOGICAL: Denies headache, amaurosis fugax, motor weakness, sensory deficit, vertigo/spinning sensation, gait abnormalities, or tremors. ENT: No hearing loss, otalgia, otorrhea, rhinitis, rhinorrhea, hoarseness, or sore throat. CARDIOVASCULAR: Denies any exertional angina, dyspnea on exertion, orthopnea, paroxysmal nocturnal dyspnea, palpitations, life-threatening arrhythmias, claudication. PULMONARY: Denies any shortness of breath, cough, phlegm/sputum, hemoptysis, pleuritic chest pain. SLEEP: Denies morning headaches, daytime somnolence or napping. Denies difficulty falling asleep, staying asleep, waking from sleep. Denies knowledge of snoring. GASTROINTESTINAL: Nausea, vomiting, abdominal pain GENITOURINARY: Denies frequency, urgency, nocturia, hematuria or incontinence (Storage/Irritative symptoms.) Low urinary stream, straining to void, urinary intermittency or hesitancy, splitting of the voiding stream, terminal dribbling. ENDOCRINOLOGIC: Denies polyuria, polydipsia, polyphagia or heat/cold intolerances. HEMATOLOGIC: Denies thrombophilia/previous clots, or coagulopathy/bleeding disorders. ONCOLOGIC: Denies personal history of malignancy. DERMATOLOGIC: Denies rashes or pruritus. PSYCHIATRIC: Denies any suicidal or homicidal ideation. Denies hallucinations. PHYSICAL EXAM GENERAL APPEARANCE: The patient is awake, alert, and oriented, in no acute cardiopulmonary distress. NEUROLOGICAL: Cranial nerves II-XII grossly intact. Motor is 5/5 in bilateral upper and lower extremities proximal to distal. No sensory deficits. HEENT: Face is symmetric. Pupils are equal and reactive. Extraocular movements are intact. NECK: Supple. No JVD. No thyromegaly. No submental, submandibular, pre- /postauricular, occipital or supraclavicular lymphadenopathy. CHEST: Normal chest expansion. No Telemetry. LUNGS: Absence of any rales, rhonchi or any wheezing. CARDIOVASCULAR: Regular. S1 and S2 normal. No appreciable rubs, murmurs or gallops. ABDOMEN: Soft, mild tenderness to palpation of the right upper quadrant with Womack's sign noted to be negative : Deferred. No Rosas. EXTREMITIES: Non-edematous and not cyanotic. No clubbing. Good capillary refill. SKIN: No skin breakdown. Vital Signs (last 8hr) Date Time Temp Pulse Resp B/P (MAP) Pulse Ox O2 Delivery O2 Flow Rate FiO2 07/30/24 08:05 97.7 88 18 142/82 96 Room Air 07/30/24 07:41 97 Room Air* 0 21 07/30/24 03:20 98.1 83 16 146/79 97 Room Air LABS: Laboratory: Test 07/30/24 09:56 07/29/24 11:42 07/29/24 10:09 07/29/24 10:04 Range/Units White Blood Count 6.0 4.8-10.8 K/uL Red Blood Count 4.26 4.00-5.50 MIL/uL Hemoglobin 13.3 12.0-16.0 g/dL Hematocrit 37.6 36-48 % Mean Corpuscular Volume 88.3 79-99 fL Mean Corpuscular Hemoglobin 31.2 27.0-33.0 pg Mean Corpuscular Hemoglobin Concent 35.4 32.0-36.0 g/dL Red Cell Distribution Width 11.9 11.0-15.5 % Platelet Count 251 130-400 K/uL Mean Platelet Volume 10.3 7.5-10.5 fL Nucleated Red Blood Cells 0.0 0.0-0.19 % Sodium Level 140 136-145 mmol/L Potassium Level 3.8 3.5-5.1 mmol/L Chloride Level 102 101-111 mmol/L Carbon Dioxide Level 30 21-32 mmol/L Blood Urea Nitrogen 10 7-18 mg/dL Creatinine 0.6 0.5-1.0 mg/dL Glomerular Filtration Rate Calc 105 >90 mL/min Random Glucose 96 70-105 mg/dL Total Calcium 9.0 8.5-10.1 mg/dL Magnesium Level 2.00 1.80-2.40 mg/dL Total Bilirubin 0.8 0.2-1.0 mg/dL Aspartate Amino Transf (AST/SGOT) 31 10-37 U/L Alanine Aminotransferase (ALT/SGPT) 47 12-78 U/L Alkaline Phosphatase 69 50-136 U/L Total Protein 8.0 6.0-8.3 g/dL Albumin 4.0 3.5-5.0 g/dL Amylase Level 37 25-115 U/L Lipase 32 16-77 U/L Urine Color COLORLESS YELLOW Urine Appearance CLEAR CLEAR Urine pH 7.0 5.0-8.0 Urine Specific Alexander 1.003 1.001-1.031 Urine Protein NEGATIVE NEGATIVE mg/dL Urine Glucose (UA) NEGATIVE NEGATIVE mg/dL Urine Ketones NEGATIVE NEGATIVE mg/dL Urine Occult Blood NEGATIVE NEGATIVE Urine Nitrate NEGATIVE NEGATIVE Urine Bilirubin NEGATIVE NEGATIVE mg/dL Urine Urobilinogen 0.2 0.2-1.0 mg/dL Urine Leukocyte Esterase NEGATIVE NEGATIVE Valerie/uL Immature Granulocyte % (Auto) 0.3 0-1 % Neutrophils (%) (Auto) 59.1 40.0-77.0 % Lymphocytes (%) (Auto) 31.1 21.0-51.0 % Monocytes (%) (Auto) 6.0 3.0-13.0 % Eosinophils (%) (Auto) 2.8 0.0-8.0 % Basophils (%) (Auto) 0.7 0.0-5.0 % Neutrophils # (Auto) 3.6 1.8-7.7 K/uL Lymphocytes # (Auto) 1.9 1.0-4.8 K/uL Monocytes # (Auto) 0.4 0.1-1.0 K/uL Eosinophils # (Auto) 0.17 0.00-0.70 K/uL Basophils # (Auto) 0.04 0.00-0.20 K/uL Absolute Immature Granulocyte (auto 0.02 0-1 K/uL Erythrocyte Sedimentation Rate 26 0-30 MM/HR Total Creatine Kinase 107 21-232 U/L Troponin I High Sensitivity 40 4-50 ng/L C-Reactive Protein, Quantitative 3.40 H 0.5-3.0 mg/L Procalcitonin < 0.05 L 0.05-0.5 ng/mL Current Medications Medications (Trade) Dose Ordered Sig/Yogi Route PRN Reason Start Time Stop Time Status Last Admin Dose Admin Acetaminophen (TYLenol 325MG TAB) 650 mg Q6H PRN PO MILD PAIN (1-3) 07/29/24 13:00 08/28/24 12:59 Amlodipine Besylate (NorvASC 5MG TAB) 5 mg DAILY PO 07/30/24 09:00 08/29/24 08:59 Ceftriaxone Sodium (ROCEphine 1G INJ) 1 gm Q24H IVPB 07/29/24 13:30 08/08/24 13:29 07/29/24 14:31 1 GM Ketorolac Tromethamine (toRADol) 15 mg Q12H PRN IV MODERATE PAIN (4-6) 07/29/24 13:30 07/31/24 13:30 07/30/24 07:34 15 MG Labetalol HCl (TRANdate 20MG SYG) 10 mg Q6H PRN IV SBP> 170 07/29/24 13:30 08/28/24 13:29 Lactated Ringer's 1,000 ml @ 80 mls/hr [id number] IV 07/29/24 13:00 08/28/24 12:59 07/30/24 07:34 80 MLS/HR Metronidazole/ Sodium Chloride 100 ml @ 100 mls/hr Q8H6 IVPB 07/29/24 14:00 08/08/24 13:59 07/30/24 05:14 100 MLS/HR Morphine Sulfate (morPHINE 2MG SYG) 2 mg Q6H PRN IVP SEVERE PAIN (7-10) 07/29/24 13:30 08/05/24 13:29 Ondansetron HCl (zoFRAN 4MG INJ) 4 mg Q6H PRN IVP NAUSEA/VOMITING 07/29/24 13:30 08/28/24 13:29 Pantoprazole Sodium (PROTonix 40MG INJ) 40 mg DAILY IVP 07/30/24 09:00 08/29/24 08:59 07/30/24 07:34 40 MG Potassium Chloride 100 ml @ 100 mls/hr AD PRN IV POTASSIUM PROTOCOL 07/29/24 13:30 08/28/24 13:29 Potassium Chloride (K-Dur/Klor-Con 20meq) 20 meq AD PRN PO POTASSIUM PROTOCOL 07/29/24 13:30 08/28/24 13:29 Potassium Chloride (KCl 10% Elixir 20meq/15ml) 20 meq AD PRN PO POTASSIUM PROTOCOL 07/29/24 13:30 08/28/24 13:29 DIAGNOSTICS / RADIOLOGY: [ ] Exam Type: MRI OF THE ABDOMEN WITHOUT CONTRAST and MR cholangiopancreatography Comparison Study: none History: ABD PAIN PROTOCOL: Examination is done with multiecho multiplanar sequences. ASSET with multiplanar 3-D reconstructions MR cholangiopancreatography sequences are also available for review. MRCP performed customary fashion. 2D axial FIESTA fat-saturated images of abdomen, coronal thick slab MRCP ASSET scan and coronal thin slab MRCP ASSET 3 mm images and maximum intensity projection postprocessing, MIP projected in the customary circumferential and head over heels fashion. FINDINGS: No evidence of nephro or ureterolithiasis is found. No hydronephrosis or ureteral dilatation is seen. The stomach is unremarkable. There is no evidence of gastric dilatation. No blastic thickening is noted to suggest inflammation or tumor. There is no perforation. There is no gastric outlet obstruction. There is no ulceration. The spleen is unremarkable. It is not enlarged. The pancreas shows normal anatomy. It is not fatty replaced. It shows no lesions. The pancreatic duct is not dilated. There is cholelithiasis with thickened gallbladder wall and pericholecystic fluid consistent with acute cholecystitis. There is a distal common bile duct calculus measuring approximately 6 mm, causing obstruction, with dilatation of the common bile duct which measures about 11 mm. The adrenal glands are unremarkable. There is no enlargement. No lesions are noted. The liver is unremarkable. It shows no focal masses. The visualized segments of large and small bowel appear unremarkable. The bony and vascular structures are unremarkable for the patient's age. IMPRESSION: There is cholelithiasis with thickened gallbladder wall and pericholecystic fluid consistent with acute cholecystitis. There is a distal common bile duct calculus measuring approximately 6 mm, causing obstruction, with dilatation of the common bile duct which measures about 11 mm. ASSESSMENT: Symptomatic biliary colic with cholelithiasis, POA Dilated common bile duct, POA Rule out choledocholithiasis, POA Prior history of cholelithiasis, POA History of hypertension, POA PLAN: Patient admitted to medical-surgical floor Keep the patient NPO, continue supportive care with IV fluids, broad-spectrum IV antibiotics. Per request, and General surgery Dr. Newsome has been consulted, plan to take the patient to the operating room today. GI consultation requested, we will follow input and recommendation Patient to continue with home dose of amlodipine 5 mg daily All labs will be repeated in the morning DVT prophylaxis with SCDs GI prophylaxis with Protonix NEURO: Minimize central acting medications as possible. Fall Precautions. Well lighted room through the day and minimize interruptions through the night to prevent acute delirium. PULMONARY: Supplemental 02 as needed BiPAP as necessary, for respiratory distress Titrate Fio2 to keep Spo2 > or = 90% DuoNebs and CPT as needed IS hourly while awake for pulmonary hygiene prn Out of bed to chair as tolerated Maintain aspiration precautions at all times CARDIOVASCULAR: Follow hemodynamics. Vital signs per facility protocol GI & NUTRITION: Continue nutritional support Aspirations precautions Prokinetic agents and laxatives as needed KIDNEYS & ELECTROLYTES: Strict monitoring of intake and output Daily weights Avoid nephrotoxic agents Monitor electrolytes and replace as needed Goal urine output of 30mL/hr or 0.5mL/kg/hr Medications to be dosed according to renal function. Avoid contrast if possible ENDOCRINE: Maintain blood glucose between 100-180 at all times. Insulin sliding scale for blood glucose management Hypoglycemia and hyperglycemia protocol in place INFECTIOUS DISEASE: Trend temperature, WBC and procalcitonin level Follow cultures, deescalate antibiotics as soon as possible. Panculture if new onset fever HEMATOLOGY & COAGULATION: Monitor H&H. Keep Hgb > 7 Transfuse 1 unit of PRBC for Hgb < 7 Transfuse 1 pack of platelets of platelets < 20, 000 Watch for any signs and symptoms of bleeding SKIN: Pressure ulcer prevention per facility protocol Specialty mattress as needed ORTHO/REHAB Continue PT/OT PRN: MEDICATIONS Tylenol 650 mg po every 4 hrs for fever zofran 4 mg IV every 6 hrs for n/v Hydralazine 5 mg IV every 4 hrs systolic pressure > 160 bowel regiment: lactulose 20 gm PO BID PRN constipation Supportive measures: Continue GI and DVT prophylaxis Disposition: Pending improvement in clinical condition All questions answered time spent: > 35 min SAI BERNAL MD July 30, 2024 11:13
--- NOTE | 2024-07-30 11:20 | CONS ---
GENERAL SURGERY CONSULTATION NOTE Date/Time Patient Seen: [Jul 30 2024 ] Requesting Physician: [ Hospitalist] Reason for Consultation: [Gallstones ] History of Present Illness: [ Patient with the acute onset of abdominal pain sign two days ago. Pain is localized in the epigastrium and right upper quadrant. Associated with the pain with some nausea and some emesis. Patient also admits to some subjective fevers. There no instigating or relieving factors. Pain got progressively worse patient decided to come to the emergency room. A CT scan and ultrasound done in the emergency room shows large gallstones within a distended gallbladder. I personally reviewed the CT scan in the above findings were my interpretation of the CT scan. Patient denies any history of melena, h ematochezia, hematuria. Patient only admits to having hypertension and taking amlodipine. Patient denies any previous surgeries. Prior to onset of symptoms patient was tolerating a regular diet.] Past Medical History: [ Hypertension] Past Surgical History: [ Patient denies] Family History: [ Noncontributory] Social History: [Patient denies any illicit drug use ] Habits: [Never] smoker. [Denies] alcohol consumption. [Denies] illicit drug use Current Medications Medications (Trade) Dose Ordered Sig/Yogi Route Start Time Stop Time Status Last Admin Dose Admin Amlodipine Besylate (NorvASC 5MG TAB) 5 mg DAILY PO 07/30/24 09:00 08/29/24 08:59 Ceftriaxone Sodium (ROCEphine 1G INJ) 1 gm Q24H IVPB 07/29/24 13:30 08/08/24 13:29 07/29/24 14:31 1 GM Lactated Ringer's 1,000 ml @ 80 mls/hr [id number] IV 07/29/24 13:00 08/28/24 12:59 07/30/24 07:34 80 MLS/HR Metronidazole/ Sodium Chloride 100 ml @ 100 mls/hr Q8H6 IVPB 07/29/24 14:00 08/08/24 13:59 07/30/24 05:14 100 MLS/HR Pantoprazole Sodium (PROTonix 40MG INJ) 40 mg DAILY IVP 07/30/24 09:00 08/29/24 08:59 07/30/24 07:34 40 MG Review of Systems: CONST: [No fever, fatigue, or weight changes.] EYES: [No recent vision problems.] ENT: [No congestion, ear pain, or sore throat.] C/V: [No chest pain, palpitations, or edema.] RESP: [No cough, congestion, wheezing or shortness of breath.] GI: [No abdominal pain, nausea, vomiting, constipation, or diarrhea.] : [No incontinence or dysuria.] SKIN: [No rash.] NEURO: [No headache, focal numbness or weakness, dizziness, or seizures.] PSYCH: [No depression or anxiety.] HEME: [No abnormal bruising or bleeding.] LYMPH: [No swollen glands.] Physical Examination: PHYSICAL EXAM EYES: Sclera white HENT: Oral nasal mucosa pink and moist NECK: Supple, . LUNGS: Unlabored CARDIOVASCULAR: Regular rate and rhythm ABDOMEN: Tender to palpation in right upper quadrant. Positive Womack's sign. CENTRAL NERVOUS SYSTEM: Awake, alert, oriented x3 SKIN: No rashes, no swelling. LYMPHATICS: No peripheral lymphadenopathy MUSCULOSKELETAL: Motor and sensory function grossly intact EXTREMITIES: No cyanosis or clubbing BACK: No deformity, no pressure ulcer. GENITOURINARY: No dysuria or hematuria Vital Signs (last 8hr) Date Time Temp Pulse Resp B/P (MAP) Pulse Ox O2 Delivery O2 Flow Rate FiO2 07/30/24 08:05 97.7 88 18 142/82 96 Room Air 07/30/24 07:41 97 Room Air* 0 21 07/30/24 03:20 98.1 83 16 146/79 97 Room Air Laboratory: [ ] Hematology Labs: Test 07/30/24 09:56 07/29/24 10:09 Range/Units White Blood Count 6.0 4.8-10.8 K/uL Red Blood Count 4.26 4.00-5.50 MIL/uL Hemoglobin 13.3 12.0-16.0 g/dL Hematocrit 37.6 36-48 % Mean Corpuscular Volume 88.3 79-99 fL Mean Corpuscular Hemoglobin 31.2 27.0-33.0 pg Mean Corpuscular Hemoglobin Concent 35.4 32.0-36.0 g/dL Red Cell Distribution Width 11.9 11.0-15.5 % Platelet Count 251 130-400 K/uL Mean Platelet Volume 10.3 7.5-10.5 fL Nucleated Red Blood Cells 0.0 0.0-0.19 % Immature Granulocyte % (Auto) 0.3 0-1 % Neutrophils (%) (Auto) 59.1 40.0-77.0 % Lymphocytes (%) (Auto) 31.1 21.0-51.0 % Monocytes (%) (Auto) 6.0 3.0-13.0 % Eosinophils (%) (Auto) 2.8 0.0-8.0 % Basophils (%) (Auto) 0.7 0.0-5.0 % Neutrophils # (Auto) 3.6 1.8-7.7 K/uL Lymphocytes # (Auto) 1.9 1.0-4.8 K/uL Monocytes # (Auto) 0.4 0.1-1.0 K/uL Eosinophils # (Auto) 0.17 0.00-0.70 K/uL Basophils # (Auto) 0.04 0.00-0.20 K/uL Absolute Immature Granulocyte (auto 0.02 0-1 K/uL Erythrocyte Sedimentation Rate 26 0-30 MM/HR Chemistry Labs: Test 07/30/24 09:56 07/29/24 10:09 07/29/24 10:04 Range/Units Sodium Level 140 136-145 mmol/L Potassium Level 3.8 3.5-5.1 mmol/L Chloride Level 102 101-111 mmol/L Carbon Dioxide Level 30 21-32 mmol/L Blood Urea Nitrogen 10 7-18 mg/dL Creatinine 0.6 0.5-1.0 mg/dL Glomerular Filtration Rate Calc 105 >90 mL/min Random Glucose 96 70-105 mg/dL Total Calcium 9.0 8.5-10.1 mg/dL Magnesium Level 2.00 1.80-2.40 mg/dL Total Bilirubin 0.8 0.2-1.0 mg/dL Aspartate Amino Transf (AST/SGOT) 31 10-37 U/L Alanine Aminotransferase (ALT/SGPT) 47 12-78 U/L Alkaline Phosphatase 69 50-136 U/L Total Protein 8.0 6.0-8.3 g/dL Albumin 4.0 3.5-5.0 g/dL Amylase Level 37 25-115 U/L Lipase 32 16-77 U/L Total Creatine Kinase 107 21-232 U/L Troponin I High Sensitivity 40 4-50 ng/L C-Reactive Protein, Quantitative 3.40 H 0.5-3.0 mg/L Procalcitonin < 0.05 L 0.05-0.5 ng/mL Diagnostics / Radiology: [Copy/Paste Echos/Imaging Report here] Assessment: [ Gallstones and early cholecystitis] Plan: [Plan laparoscopic cholecystectomy with intraoperative cholangiogram. Risks associated with the surgery not limited to infection, bleeding, injury to surrounding structures has been explained to patient and she indicates she und erstands and would like to proceed. ] ALBIN DOMINGUEZ MD July 30, 2024 11:20
[2024-07-30] MEDS ORDERED: BUPIvacaine/PF 0.5% 30ML VIAL ONE (11:29)
[2024-07-30] MEDS ORDERED: EPINEPHrine PF 1MG (1:1,000) 1 MG/ML AMP ONE (11:29)
[2024-07-30] MEDS ORDERED: IOHEXOL-350 50ML VIAL IV ONE (11:46)
--- NOTE | 2024-07-30 11:56 | NUR ---
CONSENT SIGNED FOR LAP [facility] POSSIBLE OPEN FOR TODAY WITH DR DOMINGUEZ
--- NOTE | 2024-07-30 13:18 | NUR ---
TAKEN OFF UNIT TO THE OR FOR [facility]
[2024-07-30] MEDS ORDERED: LIDOCAINE PF 100MG/5ML (2%) SYRINGE 5ML ONE (13:45)
[2024-07-30] MEDS ORDERED: rocuRONium bROMide 10MG/1ML 5ML VL ONE (13:45)
[2024-07-30] MEDS ORDERED: MIDAZOLAM HCL 1 MG/ML 2ML VIAL ONE (13:45)
[2024-07-30] MEDS ORDERED: proPOFol 10 MG/ML 20ML VIAL IV ONE (13:45)
[2024-07-30] MEDS ORDERED: FENTanyl CITRate PF 50 MCG/1 ML 2ML VIAL ONE ×2 (13:46→14:17)
[2024-07-30] MEDS ORDERED: ROPivacaine 0.5% 5MG/ML 30ML ONE (13:54)
[2024-07-30] MEDS ORDERED: 0.9%NACL 10ML VIAL ONE (13:55)
[2024-07-30] MEDS: BUPIvacaine/EPI/PF 0.5% 30ML VIAL IJ ONE (14:10)
[2024-07-30] MEDS ORDERED: ketOROlac 30MG VIAL (30MG/ML) ONE (14:48)
[2024-07-30] MEDS ORDERED: dexaMETHasone SOD PHOSPHATE 10MG/ML 1ML VIAL ONE (14:48)
[2024-07-30] MEDS ORDERED: ondanSETRON 4MG INJ ONE (14:48)
--- NOTE | 2024-07-30 15:08 | OP ---
Operative Note: DATE OF PROCEDURE: 07/30/24 SURGEON: ALBIN DOMINGUEZ MD ROLL SETTER: [Ysabel Hayes CFA] ANESTHESIA: [General endotracheal anesthesia] ANESTHESIOLOGIST/UNDER SHERIFF: [[facility] anesthesia team] PREOPERATIVE DIAGNOSIS: [Gallstones with cholecystitis] POSTOPERATIVE DIAGNOSIS: [Same] SYNOPSIS: [Gallstones with cholecystitis Laparoscopic cholecystectomy with intraoperative cholangiogram #1 critical view obtained, #2 intraoperative cholangiogram with good flow of contrast from cystic duct into common bile duct, right and left hepatic duct, and duodenum noted All sponges and instruments were accounted for at the end the case Patient tolerated the procedure well, there no complications] PROCEDURE: [Laparoscopic cholecystectomy with intraoperative cholangiogram] ESTIMATED BLOOD LOSS: [Less than 10 cc] INDICATIONS: [Gallstones with chronic cholecystitis] DESCRIPTION OF PROCEDURE: [On day of surgery patient was brought to the operating room. Positioned in the supine position. Preoperative antibiotics were given. Bilateral SCDs were placed. The patient was intubated. Patient then was prepped and draped in the usual fashion. Then a skin incision was made in the right upper quadrant. 5 mm trochars inserted under direct vision. Abdomen was insufflated to 15 mmHg. No injury to omentum or bowel is noted. A 5 mm port was placed in the umbilicus. A 12 mm port was placed in the subxiphoid position. A 5 mm port was placed in the right lateral abdomen. The gallbladder was grasped, elevated, the cystic duct and cystic artery was sequentially dissected. Critical view was obtained. An intraoperative cholangiogram was conducted by placing a clip at the distal end of the cystic duct. Ductotomy was made. A cholangiocatheter was introduced. Good flow of contrast from the cystic duct into common bile duct, right and left hepatic devon t, and duodenum was noted. The Cholangiocath was removed. The cystic duct was sequentially clipped and transected. The cystic artery was then sequentially clipped and transected. The gallbladder then was dissected off the gallbladder fossa and removed an Endo Catch bag. Abdomen was irrigated. Appropriate hemostasis was noted. Then all insufflation gas was removed. Ports were removed. Local anesthetic was instilled into the incisions, and the incisions were closed with a subcuticular fashion. All sponges and instruments were accounted for at the end of the case. Patient tolerated the procedure well, there were no complications.] ALBIN DOMINGUEZ MD July 30, 2024 15:08
--- NOTE | 2024-07-30 15:17 | HMCIMG ---
CHOLANGIO &/OR PANCRE INTRAOPE HISTORY: LAP MELA W/IOC'S TECHNIQUE: CHOLANGIO &/OR PANCRE INTRAOPE FINDINGS/IMPRESSION: Fluoroscopic images were obtained for procedure documentation. Please see operative report for more details. Fluoroscopy time 0.15 minutes. Questionable small filling defects in the distal CBD. Correlate clinically.
[2024-07-30] MEDS ORDERED: NEOSTIGMINE METHYLSULFATE 1MG/ML IV ONE (15:23)
[2024-07-30] MEDS ORDERED: GLYCOPYRROLATE 0.2 MG/ML 5 ML VIAL ONE (15:23)
[2024-07-30] MEDS: acetaMINOPHEN 100 ML ONE (15:47)
--- NOTE | 2024-07-30 16:00 | NUR ---
RETURNED FROM OR. IN NO DISTRESS.
[2024-07-30] MEDS: morPHINE 2 MG SYG IVP PRN (17:13)
[2024-07-30] MEDS ORDERED: traMADol HCL 50 MG TABLET PO PRN (21:30)
[2024-07-30] MEDS ORDERED: doCUSate SODIUM 100 MG CAP PO PRN (21:30)
[2024-07-30] MEDS ORDERED: metRONIDazole 500MG/100ML BAG 100 ML IVPB SCH (22:30)
[2024-07-31] MEDS: metRONIDazole 500MG/100ML BAG 100 ML IVPB SCH (00:53)
[2024-07-31 03:33] VITALS: BP 95/55; PULSE 93; RESP 16; TEMP 98.1
[2024-07-31 05:28] LABS: HEMATOCRIT 34.3 % (36-48); MEAN CORPUSCULAR HEMOGLOBIN 30.9 pg (27.0-33.0); MEAN CORPUSCULAR HGB CONC 35.3 g/dL (32.0-36.0); MEAN CORPUSCULAR VOLUME 87.7 fL (79-99); RED BLOOD CELL COUNT(AUTO) 3.91 MIL/uL (4.00-5.50); RED CELL DISTRIBUTION WIDTH 11.9 % (11.0-15.5); WHITE BLOOD COUNT (AUTO) 11.3 K/uL (4.8-10.8)
[2024-07-31 05:43] LABS: ALBUMIN 3.5 g/dL (3.5-5.0); BILIRUBIN,TOTAL 0.5 mg/dL (0.2-1.0); CREATININE 0.6 mg/dL (0.5-1.0); MAGNESIUM 1.8 mg/dL (1.80-2.40); POTASSIUM 3.7 mmol/L (3.5-5.1); TOTAL PROTEIN, SERUM 7.2 g/dL (6.0-8.3)
[2024-07-31 07:42] VITALS: BP 142/74; PULSE 88; RESP 18; TEMP 98.4
[2024-07-31 08:16] VITALS: O2SAT 95
[2024-07-31] MEDS: methoCARBamol 500 MG TABLET PO SCH (09:35)
[2024-07-31] MEDS: GABApentin 100 MG CAPSULE PO SCH (09:35)
[2024-07-31] MEDS ORDERED: AMOX1TAB16 PO (09:40)
--- NOTE | 2024-07-31 09:43 | DS ---
Discharge Summary Hospital Course Summary: 54-year-old female with underlying history of hypertension, cholelithiasis who presented to the ER for further evaluation of right upper quadrant abdominal pain that started since 12:00 p.m. yesterday with associated nausea and multiple episodes of vomiting x 2. Patient states that symptoms started yesterday afternoon and pain has been very severe in intensity this morning. Pain was 9- 10/10 in severity. Patient states that she had similar symptoms last year and was told that she had cholelithiasis. Has not been evaluated by surgery as outpatient. She denies any fevers, chills, chest pain or shortness of breath. She reports that patient has a history of hypertension. She takes amlodipine for management of blood pressure control. She sometimes forgets to take amlodipine. She denies any previous history of NE or syncope. On presentation to the hospital, patient was noted to be afebrile and hemodynamically stable. Labs on presentation was unremarkable. Patient underwent CT abdomen pelvis which showed findings of multiple cholelithiasis. Abdominal ultrasound showed findings of cholelithiasis, fatty liver, with dilated common bile duct. Chest x-ray showed no acute infiltrates. Consultation with General surgery was requested in the ER. Patient admitted and received IV fluids and IV antibiotic therapy. MRCP was done, there is cholelithiasis with thickened gallbladder wall and pericholecystic fluid consistent with a acute cholecystitis, there is a distal common bile duct calculus measuring approximately 6 mm causing obstruction, with dilatation of the common bile duct which measures about 11 mm. The patient was taken to the operating room 07/30/2024, underwent successful laparoscopic cholecystectomy with intraoperative cholangiogram, with good flow of contrast from cystic duct into common bile duct, right and left hepatic duct, and duodenal noted, patient tolerated the procedure well, there were no complications. Patient alert oriented x3, tolerating diet, no nausea, no vomiting, no abdominal discomfort, passing gas. Manager Heart(s): General surgeon Procedure(s): [facility] [address] [place] [id number] Operative Note: DATE OF PROCEDURE: 07/30/24 SURGEON: ALBIN DOMINGUEZ MD FUR STORAGE CLERK: [Ysabel Hayes CFA] ANESTHESIA: [General endotracheal anesthesia] ANESTHESIOLOGIST/MEDIA SPECIALIST: [[facility] anesthesia team] PREOPERATIVE DIAGNOSIS: [Gallstones with cholecystitis] POSTOPERATIVE DIAGNOSIS: [Same] SYNOPSIS: [Gallstones with cholecystitis Laparoscopic cholecystectomy with intraoperative cholangiogram #1 critical view obtained, #2 intraoperative cholangiogram with good flow of contrast from cystic duct into common bile duct, right and left hepatic duct, and duodenum noted All sponges and instruments were accounted for at the end the case Patient tolerated the procedure well, there no complications] PROCEDURE: [Laparoscopic cholecystectomy with intraoperative cholangiogram] ESTIMATED BLOOD LOSS: [Less than 10 cc] INDICATIONS: [Gallstones with chronic cholecystitis] DESCRIPTION OF PROCEDURE: [On day of surgery patient was brought to the operati ng room. Positioned in the supine position. Preoperative antibiotics were given. Bilateral SCDs were placed. The patient was intubated. Patient then was prepped and draped in the usual fashion. Then a skin incision was made in the right upper quadrant. 5 mm trochars inserted under direct vision. Abdomen was insufflated to 15 mmHg. No injury to omentum or bowel is noted. A 5 mm port was placed in the umbilicus. A 12 mm port was placed in the subxiphoid position. A 5 mm port was placed in the right lateral abdomen. The gallbladder was grasped, elevated, the cystic duct and cystic artery was sequentially dissected. Critical view was obtained. An intraoperative cholangiogram was conducted by placing a clip at the distal end of the cystic duct. Ductotomy was made. A cholangiocatheter was introduced. Good flow of contrast from the cystic duct into common bile duct, right and left hepatic duct, and duodenum was noted. The Cholangiocath was removed. The cystic duct was sequentially clipped and transected. The cystic artery was then sequentially clipped and transected. The gallbladder then was dissected off the gallbladder fossa and removed an Endo Catch bag. Abdomen was irrigated. Appropriate hemostasis was noted. Then all insufflation gas was removed. Ports were removed. Local anesthetic was instilled into the incisions, and the incisions were closed with a subcuticular fashion. All sponges and instruments were accounted for at the end of the case. Patient tolerated the procedure well, there were no complications.] ALBIN DOMINGUEZ MD July 30, 2024 15:08 Electronically Signed by: ALBIN DOMINGUEZ MD07/30/24 [id number] Electronically Co-Signed by: Assessment/Plan: Final diagnosis Symptomatic biliary colic with cholelithiasis, POA Acute cholecystitis, status post laparoscopic cholecystectomy 07/30/2024 Dilated common bile duct, choledocholithiasis ruled out POA Prior history of cholelithiasis, POA History of hypertension, POA Discharge Instructions: The patient to follow up with the General surgery as an outpatient and to return to the hospital for condition changes, patient agreed with plan and understood the information provided. Home Medications: Reported Medications Amlodipine Besylate (Amlodipine Besylate) 5 Mg Tablet, 5 MG PO DAILY, TAB 07/29/24 Time spent arranging discharge: 31-60 minutes SAI BERNAL MD July 31, 2024 09:43
[2024-07-31] MEDS ORDERED: TRAM-543 PO (09:45)
[2024-07-31] MEDS ORDERED: DOCU-116 PO (09:45)
[2024-07-31 11:44] VITALS: BP 145/86; PULSE 87; RESP 18; TEMP 98.3
[2024-07-31 15:56] VITALS: BP 152/95; PULSE 102; RESP 18; TEMP 98.2
--- NOTE | 2024-07-31 17:42 | NUR ---
D/C INSTRUCTIONS GIVEN AND ACKNOWLEDGED BY PT/SPOUSE. IV REMOVED
--- NOTE | 2024-08-02 14:39 | NUR ---
Transitional Phone Call Patient speaks Luxembourgish, states "estallen faby en la recuperacion," and "toda esta faby." States she is taking the prescribed medication as instructed and maintaining the diet as instructed; no questions or concerns. States she has not been able to make a follow up appointment with PCP because she has never been seen by the PCP doctor specified on the card and seems to not exist; her spouse is currently working with the insurance company to get another PCP. States she will be contacting surgeon - Dr. Dias in two weeks to set up appointment; reeducated patient to make appointment now to have the follow up appointment in two weeks. No questions or concerns at this time.
== END 2024-07-31 18:28 | disposition home or self-care (01) | DRG 419 ==
LOC: EDH 09:49 → EDHIP 12:56 → 3CH 15:50
PROVIDERS: ADMIT Internal Medicine; ATTEND Internal Medicine
PROC: BF131ZZ Fluoroscopy of Gallbladder and Bile Ducts using Low Osmolar Contrast (ICD-10-PCS; 2024-07-30)
PROC: 0FT44ZZ Resection of Gallbladder, Percutaneous Endoscopic Approach (ICD-10-PCS; principal; 2024-07-30 14:30)
DX: K80.01 Calculus of gallbladder with acute cholecystitis with obstruction (principal); I10 Essential (primary) hypertension; K83.8 Other specified diseases of biliary tract; K76.0 Fatty (change of) liver, not elsewhere classified; Z79.899 Other long term (current) drug therapy
CPT/HCPCS: 36415; 71045; 74176; 74181; 74300; 76705; 80053; 81003; 82150; 82550; 83690; 83735; 84145; 84484; 85025; 85027; 85651; 86140; 93005; 96361; 96374; 96375; 99285; C1758; G0378; J0171; J0696; J1100; J1885; J2003; J2250; J2270; J2405; J2470; J2704; J2710; J2795; J3010; J3490; J7030; Q9967; A4216; A4222; A4223; A4600; A4649; A4930; J0665; S8037